=== PATIENT | male | born 1975 | race Caucasian/White ===

== ENCOUNTER 2016-08-11 08:07 | Emergency (ER) | payer SELFPAY ==
[2016-08-11 08:28] VITALS: BP 110/72; PULSE 66; TEMP 97.8; BMI 28.2
[2016-08-11] MEDS ORDERED: CYCLOBENZAPRINE HCL 10 MG TABLET (FP) PO ONE (09:11)
[2016-08-11] MEDS ORDERED: IBUPROFEN 600 MG TABLET (FP) PO ONE ×2 (09:11→09:14)
[2016-08-11] MEDS ORDERED: CYCLOBENZAPRINE HCL 10 MG TABLET (FP) ONE (09:14)
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
== END 2016-08-11 09:23 | disposition home or self-care (01) ==
LOC: JERFT 08:07
DX: S13.4XXA Sprain of ligaments of cervical spine, initial encounter (principal); V43.52XA Car driver injured in collision with other type car in traffic accident, initial encounter; W22.12XA Striking against or struck by front passenger side automobile airbag, initial encounter; Y93.89 Activity, other specified; Y92.410 Unspecified street and highway as the place of occurrence of the external cause; Z87.442 Personal history of urinary calculi
CPT/HCPCS: 99281-25